=== PATIENT | male | born 1995 | race African-American/Black ===

== ENCOUNTER 2021-11-01 10:35 | Emergency (ER) | payer MEDICAID ==
[~2021-11-01] VITALS: Ht 182.9 cm; Wt 84.0 kg
[2021-11-01] MEDS ORDERED: VISCOUS LIDOCAINE 2% 15 ML UDC PO STA (10:45)
[2021-11-01] MEDS ORDERED: MAGNESIUM/ALUMINUM HYDROXIDE/SIMETHICONE 30ML UDC PO STA (10:45)
[2021-11-01] MEDS ORDERED: ONDANSETRON 4MG ODT PO STA (10:45)
[2021-11-01] MEDS ORDERED: SODIUM CHLORIDE 0.9% 1,000 ML IV ONE (11:45)
[2021-11-01 12:15] LABS: BASOPHILS % 0.6 % (0.0-2.0); CHLORIDE 104 mEq/L (98-107); EOSINOPHILS % 1.3 % (0.0-5.0); HEMATOCRIT. 43.8 % (42.0-52.0); LYMPHOCYTES % 14.4 % (20.0-50.0); MEAN CORPUSCULAR HEMOGLOBIN 22.1 pg (28.0-32.0); MEAN CORPUSCULAR VOLUME 68.9 fL (80.0-94.0); MEAN PLATELET VOLUME 8.3 fl (7.4-10.4); NEUTROPHILS % 69.7 % (40.0-76.0); PLATELET 225 x1000/uL (130-400); RED BLOOD CELL COUNT 6.37 mill/uL (4.7-6.1); RED CELL DISTRIBUTION WIDTH 14.7 % (11.6-14.6)
[2021-11-01 12:44] LABS: PLATELET ESTIMATE NORMAL
[2021-11-01] MEDS ORDERED: IOHEXOL-300 100 ML BOTTLE ONE (14:15)
[2021-11-01] MEDS ORDERED: AZIT500T8 MT (15:41)
[2021-11-01] MEDS ORDERED: LOPE2CAP14 MT (15:42)
[2021-11-01 17:07] VITALS: BP 128/66
== END 2021-11-01 17:10 | disposition home or self-care (01) ==
LOC: ER 10:35
DX: K52.9 Noninfective gastroenteritis and colitis, unspecified (principal)
CPT/HCPCS: 36415; 74177; 80053; 83605; 83690; 85025; 96360; 96361; 99285; J7030; Q0162; Q9967